=== PATIENT | male | born 2000 | race Caucasian/White ===

== ENCOUNTER → 2021-08-10 | Outpatient (CLI) | payer OTHER ==
[2021-08-10 15:19] LABS: HEMOGLOBIN 14.1 gm/dl (14.0-17.5); RED BLOOD COUNT 4.65 M/UL (4.20-5.50); WHITE BLOOD COUNT 5.8 K/UL (4.5-11.0)
[2021-08-10 15:36] LABS: BUN/CREATININE RATIO 10 (0-10)
[2021-08-11 08:14] LABS: VITAMIN D, 25-HYDROXY 26.7 ng/mL (30.0-100.0)
[2021-08-11 10:14] LABS: COMPLEMENT C3, SERUM 108 mg/dL (82-167); COMPLEMENT C4, SERUM 14 mg/dL (12-38); RHEUMATOID ARTHRITIS FACTOR <10.0 IU/mL (<14.0)
== END ==
LOC: LAB 13:38
PROVIDERS: Nurse Practitioner Family
DX: M25.50 Pain in unspecified joint (principal); D89.9 Disorder involving the immune mechanism, unspecified; R76.8 Other specified abnormal immunological findings in serum; M79.10 Myalgia, unspecified site
CPT/HCPCS: 80053; 81001; 82550; 82570; 82728; 83520; 84156; 84439; 84443; 85025; 85652; 86140; 86160; 86162; 86200; 86431